=== PATIENT | male | born 1985 | race Caucasian/White ===

== ENCOUNTER 2017-09-04 11:02 | Emergency (ER) | payer OTHER ==
[2017-09-04 11:33] LABS: HEMATOCRIT 41.1 % (42.0-54.0); HEMOGLOBIN 14.4 g/dL (13.5-17.5); LYMPHOCYTES 24.5 % (15-50); MCH 30.8 pg (26.0-34.0); MCV 87.8 fL (80.0-100.0); MEAN PLATELET VOLUME 9.4 fL (7.4-10.4); NEUTROPHILS 65.9 % (40-80); PLATELET COUNT 219 10x3/uL (130-400); RBC 4.68 10x6/uL (4.20-6.10); RDW 12.7 % (11.5-14.5); WBC 5.9 10x3/uL (4.8-10.8)
[2017-09-04 11:50] LABS: ALKALINE PHOSPHATASE 71 U/L (46-116); ALT (SGPT) 54 U/L (10-68); BILIRUBIN - TOTAL 0.47 mg/dL (0.2-1.3); CALC OSMOLALITY 274 mosm/kg (275-300); CALCIUM 9.1 mg/dL (8.5-10.1); CARBON DIOXIDE 24.8 mmol/L (21.0-32.0); CHLORIDE - SERUM 103 mmol/L (98-107); CREATININE - SERUM 1.2 mg/dL (0.6-1.3); GLUCOSE 117 mg/dL (74-106); POTASSIUM - SERUM 3.9 mmol/L (3.5-5.1); PROTEIN - SERUM 7.6 g/dL (6.4-8.2); SODIUM 137 mmol/L (136-145); UREA NITROGEN 12 mg/dL (7-18); eGFR NON AFRICAN AMERICAN 74 mL/min (90-120)
[2017-09-04 12:00] LABS: CHOL - HDL RATIO 4.8 ratio (2.3-4.9); CHOLESTEROL, TOTAL 188 mg/dL (0-200); CKMB 2.3 U/L (0.0-3.6); CREATINE KINASE 251 UL (21-232); HDL CHOLESTEROL 39 mg/dL (32-96); LDL CHOLESTEROL 135 mg/dL (0-100); LDL-HDL RATIO 3.5 ratio (1.5-3.5); TRIGLYCERIDE 70 mg/dL (30-200); TROPONIN-I < 0.017 ng/mL (0.000-0.060)
== END 2017-09-04 14:08 | disposition home or self-care (01) ==
LOC: D.ER 11:02
PROVIDERS: Emergency Medicine
DX: R07.89 Other chest pain (principal); K21.9 Gastro-esophageal reflux disease without esophagitis; F41.9 Anxiety disorder, unspecified